=== PATIENT | female | born 2000 | race Two or more races ===

== ENCOUNTER 2023-11-22 20:36 | Emergency (ER) | payer MEDICAID ==
[~2023-11-22] VITALS: Ht 167.6 cm; Wt 85.5 kg
[~2023-11-22 20:36] MED LIST: METO-281 PO
[2023-11-22 20:51] VITALS: BP 122/77; PULSE 112; RESP 16; O2SAT 97
[2023-11-22 21:19] LABS: Urine Epithelial Cast None Seen /hpf (<5)
[2023-11-22 21:22] LABS: Basophils # (auto) 0.2 10 ^3/uL (0-0.2); Basophils % (auto) 2.8 % (0.0-2.0); Eosinophils # (auto) 0.2 10 ^3/uL (0-0.8); Eosinophils % (auto) 2.5 % (0.0-7.0); Hematocrit 46.7 % (36.0-46.0); Hemoglobin 15.7 g/dL (12.2-16.2); Lymphocytes # (auto) 2.2 10 ^3/uL (0.4-5.4); Lymphocytes % (auto) 26.6 % (10.0-50.0); Mean Corpuscular Hemoglobin 29.6 pg (28.0-32.0); Mean Corpuscular Hgb Conc. 33.7 g/dL (32.0-36.0); Mean Corpuscular Volume 88.1 fL (80.0-100.0); Monocytes # (auto) 0.6 10 ^3/uL (0-1.3); Monocytes % (auto) 7.4 % (0.0-12.0); Neutrophils # (auto) 5.1 10 ^3/uL (1.6-8.6); Neutrophils % (auto) 60.7 % (37.0-80.0); Red Blood Cells 5.31 10^6/uL (4.0-5.20); Red Cell Distribution Width 15.3 % (11.8-14.3); White Blood Cell 8.5 10^3/uL (4.4-10.8)
[2023-11-22 21:35] LABS: Chloride 107 mmol/L (98-107); Potassium 3.8 mmol/L (3.5-5.1); Sodium 138 mmol/L (136-145)
[2023-11-22 21:36] LABS: Anion Gap 8 (5-15); Carbon Dioxide 23 mmol/L (20-30)
[2023-11-22 21:37] LABS: Calcium 9.6 mg/dL (8.7-10.4)
[2023-11-22 21:40] LABS: Urine Bacteria NONE SEEN /hpf (None Seen); Urine Blood Negative /uL (Negative); Urine Clarity Clear (Clear); Urine Color Colorless (Yellow); Urine Protein, UAD Negative (Negative); Urine Specific Gravity 1.009 (1.001-1.035); Urine Urobilinogen Normal (Negative); Urine WBC 1 /hpf (0 - 5); Urine pH 6.5 (5.0-8.0)
[2023-11-22 21:41] LABS: BUN/Creatinine Ratio 10.7 (10.0-20.0); Blood Urea Nitrogen 8 mg/dL (9-23); Glucose 97 mg/dL (74-106)
[2023-11-22 21:42] LABS: Lipase 44 U/L (12-53)
[2023-11-22] MEDS ORDERED: SODIUM CHLORIDE 0.9% 1,000 ML IV ONE (22:00)
[2023-11-22] MEDS ORDERED: LIDOCAINE VISCOUS 2% 15ML UD PO ONE (22:00)
[2023-11-22] MEDS ORDERED: MAALOX PLUS or MAALOX 30 ML PO ONE (22:00)
[2023-11-22] MEDS ORDERED: ONDANSETRON HCL 4 MG/2 ML VIAL IV ONE (22:00)
[2023-11-22] MEDS ORDERED: DONNATAL 5ml ORAL Elix (BELLADONNA ALK-PHENOBARB) PO ONE (22:00)
[2023-11-22] MEDS ORDERED: PANT40TA2 PO (23:00)
== END 2023-11-23 00:33 | disposition home or self-care (01) ==
LOC: ER 20:36
DX: K29.70 Gastritis, unspecified, without bleeding (principal); R42 Dizziness and giddiness; Z88.1 Allergy status to other antibiotic agents; Z88.2 Allergy status to sulfonamides; Z88.6 Allergy status to analgesic agent
CPT/HCPCS: 36415; 80048; 81001; 83690; 85025